=== PATIENT | female | born 1990 | race Caucasian/White ===

== ENCOUNTER 2019-11-01 00:56 | Emergency (ER) | payer SELFPAY ==
--- NOTE | 2019-11-01 03:30 | RADIOLOGY REPORT (SQ) ---
Left shoulder x-ray three views on 11/01/2019 at 3:18 AM CLINICAL INDICATION: Left shoulder pain after lifting injury COMPARISON: None FINDINGS: The AC joint is well aligned. The glenohumeral joint is well located. There are no fractures. No bony abnormality is noted. IMPRESSION: No acute abnormality.
[2019-11-01] MEDS ORDERED: LIDOCAINE 5% (700 MG) TRANSDERMAL ADH..PATCH TP ONE (09:24)
[2019-11-01] MEDS ORDERED: CYCLOBENZAPRINE HCL 10 MG TABLET PO ONE (09:24)
--- NOTE | 2019-11-01 09:28 | ER Document Report ---
HPI - HPI Patient complains to provider of: Left upper back pain Time Seen by Provider: 11/01/19 09:15 Onset: Other - 3 Days Onset/Duration: Persistent Pain Level: 3 Context: Patient states that she recently moved and was attempting to lift a log seat up 3 days ago and had pain to the left upper back area. Patient denies any cough or cold symptoms. Patient is right-hand dominant. Patient complains of increased pain with movement of the left upper extremity. Associated Symptoms: denies: Chest pain, Nonproductive cough, Productive cough Exacerbated by: Movement Relieved by: Denies Similar symptoms previously: No Recently seen / treated by doctor: No - ROS ROS below otherwise negative: Yes Systems Reviewed and Negative: Yes All other systems reviewed and negative - NEURO Neurology: DENIES: Weakness - CARDIOVASCULAR Cardiovascular: DENIES: Chest pain - RESPIRATORY Respiratory: DENIES: Coughing - REPRODUCTIVE LMP: ON DEPO Reproductive: DENIES: : - MUSCULOSKELETAL Musculoskeletal: REPORTS: Back Pain - DERM Skin Color: Normal Skin Problems: None Past Medical History - General Information source: Patient - Social History Smoking Status: Current Every Day Smoker Frequency of alcohol use: Social Drug Abuse: Marijuana 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 HEAD: Atraumatic, normocephalic. EYES: sclera anicteric, conjunctiva are normal. ENT: nares patent. Moist mucous membranes. NECK: Normal range of motion, supple without lymphadenopathy LUNGS: CTAB and equal. No wheezes rales or rhonchi. HEART: Regular rate and rhythm without murmurs EXTREMITIES: No left shoulder joint tenderness, patient with a full left shoulder passive range of motion, normal range of motion, no pitting edema. No cyanosis. BACK: Left trapezius muscle tenderness, no midline tenderness, no step-off or deformity. No CVA tenderness NEUROLOGICAL: Cranial nerves grossly intact. Normal speech. PSYCH: Normal mood, normal affect. SKIN: Warm, Dry, normal turgor, no rashes or lesions noted Course - Re-evaluation Re-evalutation: 11/01/19 09:26 Patient with likely left trapezius muscle strain, will treat symptomatically and refer to Ortho for any persistent pain or problems. Patient verbalized understanding and is agreeable discharge plan of care. - Vital Signs Vital signs: Temp Pulse Resp BP Pulse Ox 98.7 F 87 16 116/70 98 11/01/19 01:24 11/01/19 06:23 11/01/19 01:24 11/01/19 06:23 11/01/19 06:23 - Diagnostic Test Radiology reviewed: Image reviewed, Reports reviewed Discharge - Discharge Clinical Impression: Strain of left trapezius muscle Qualifiers: Encounter type: initial encounter Qualified Code(s): S46.812A - Strain of other muscles, fascia and tendons at shoulder and upper arm level, left arm, initial encounter Condition: Stable Disposition: HOME, SELF-CARE Instructions: Muscle Relaxers ([facility]), Muscle Strain ([facility]) Additional Instructions: Return immediately for any new or worsening symptoms Followup with your primary care provider, call tomorrow to make a followup appointment Follow-up with orthopedics for any persistent pain or problems Prescriptions: Cyclobenzaprine HCl [Flexeril 10 Mg Tablet] 10 mg PO TID #15 tablet Lidocaine [Lidoderm 5% (700 mg) Transdermal Patch] 1 patch TP DAILY PRN #10 adh..patch PRN Reason: Naproxen [Naprosyn 250 Nmg Tablet] 1 tab PO BID #14 tablet Forms: Restricted Release, Return to Work Referrals: [facility] [Provider Group] - Follow up as needed SANTIAGO CARRASCO MD [ACTIVE STAFF] - Follow up as needed
[2019-11-01 10:12] VITALS: BP 112/74
== END 2019-11-01 10:05 | disposition home or self-care (01) ==
LOC: ER 00:56
DX: S29.012A Strain of muscle and tendon of back wall of thorax, initial encounter (principal); X50.0XXA Overexertion from strenuous movement or load, initial encounter; F17.200 Nicotine dependence, unspecified, uncomplicated; F12.10 Cannabis abuse, uncomplicated
CPT/HCPCS: 99283